=== PATIENT | female | born 1970 | race Caucasian/White ===

== ENCOUNTER → 2020-06-22 | Outpatient (CLI) | payer BC ==
--- NOTE | 2020-06-22 18:29 | Diagnostic Imaging Report ---
INDICATION: Routine screening Comparison is made prior mammogram and 10/09/2014. 2-D and 3-D bilateral screening mammography was performed with CAD. Both breasts remain heterogeneously dense, limiting sensitivity of mammography. The parenchymal pattern is stable. No mass or malignant appearing microcalcifications are seen. Axillae are unremarkable. IMPRESSION: BI-RADS Category 1 No mammographic features suspicious for malignancy are identified. ACR BI-RADS Category 1: Negative. Result letter will be mailed to the patient. Note: At least 10% of breast cancer is not imaged by mammography. Dictated by: Dictated on workstation # [id number]
== END ==
LOC: RAD 11:30
PROVIDERS: ATTEND Family Medicine
DX: Z12.31 Encounter for screening mammogram for malignant neoplasm of breast (principal)
CPT/HCPCS: 77063; 77067

== ENCOUNTER → 2021-07-02 | Outpatient (CLI) | payer BC ==
--- NOTE | 2021-07-02 12:25 | Diagnostic Imaging Report ---
Indication: Routine screening. Comparison is made with prior mammogram from 06/22/2020 and 03/12/2016. 2-D and 3-D bilateral screening mammography was performed with CAD. CAD is utilized. The current study was also evaluated with a Computer Aided Detection (CAD) system. Both breasts are heterogeneously dense, limiting the sensitivity of mammography. A benign nodule in the outer right breast is stable. No spiculated mass or malignant-appearing microcalcifications are seen. Axillae are unremarkable. IMPRESSION: BI-RADS Category 2 No mammographic features suspicious for malignancy are identified. ACR BI-RADS Category 2: Benign findings. Result letter will be mailed to the patient. Note: At least 10% of breast cancer is not imaged by mammography. Dictated by: Dictated on workstation # [id number]
== END ==
LOC: RAD 08:15
PROVIDERS: ATTEND Family Medicine
DX: Z12.31 Encounter for screening mammogram for malignant neoplasm of breast (principal)
CPT/HCPCS: 77063; 77067

== ENCOUNTER 2021-11-20 05:44 | Outpatient (CLI) | payer BC ==
[~2021-11-20] VITALS: Ht 162.6 cm; Wt 76.2 kg
[2021-11-21] MEDS ORDERED: ESCI20TA PO (10:12)
[2021-11-21] MEDS ORDERED: AMPH20TA2 PO (10:12)
[2021-11-21] MEDS ORDERED: AMLO2.5T4 PO (10:12)
== END 2021-11-21 10:18 | disposition home or self-care (01) ==
LOC: PREOP 05:44
PROVIDERS: ATTEND Internal Medicine
DX: Z01.818 Encounter for other preprocedural examination (principal)

== ENCOUNTER 2021-11-29 07:24 | Day surgery (SDC) | payer BC ==
--- NOTE | 2021-11-20 07:42 | HISTORY AND PHYSICAL ---
DATE OF SERVICE: COLONOSCOPY HISTORY AND PHYSICAL DATE OF ADMISSION: 11/29/2021 HISTORY OF PRESENT ILLNESS: The patient is a 51-year-old white female referred by Dr. Victor for screening colonoscopy. She is deemed to be of higher than average risk as her father was diagnosed with colon cancer at the age of 66. She accomplished one other colonoscopy performed by myself in 2008 that revealed no evidence for neoplasia or any other significant abnormality. She reports that she generally has felt well. She has noted no blood in the stool, bright red or melena. Denies abdominal pain or any chronic problems with diarrhea or constipation. She is not aware of anybody else has come down with colon cancer in the family. PAST MEDICAL HISTORY: She denies a history of hypertension. She has a history of Raynaud's without any other known autoimmune disease. ADD. She has a past history of depression as well. PAST SURGICAL HISTORY: Significant for total abdominal hysterectomy performed in 1999. FAMILY HISTORY: As noted in the HPI. Mother has had a history of lymphoma that caused her , also had asthma and arthritis. SOCIAL HISTORY: She is , one daughter and one stepson. No past smoking history with occasional moderate social alcohol intake. REVIEW OF SYSTEMS: CONSTITUTIONAL: Denies night sweats, chills, fever, change in weight. PULMONARY: Denies cough, wheezing or shortness of breath. GASTROINTESTINAL: As noted in the HPI. CARDIOVASCULAR: Denies orthopnea, PND, pedal edema or chest discomfort or syncope. PHYSICAL EXAMINATION: GENERAL: Reveals a pleasant white female, appears to be in no acute distress. VITAL SIGNS: Blood pressure 122/78, heart rate 70 and regular. HEENT: Unremarkable. Mallampati 1 pharyngeal configuration. No erythema noted. CHEST: Clear to auscultation. CARDIOVASCULAR: Reveals regular rate and rhythm without murmur, S3 or S4. ABDOMEN: Soft, supple without mass, organomegaly or tenderness. EXTREMITIES: Reveal no cyanosis, clubbing or edema. ASSESSMENT AND PLAN: The patient is being set up for screening colonoscopy, deemed to be of higher than average risk as her father was diagnosed with colon cancer at the age of 66. Prep instructions were given and questions were answered. Electronic medical record and Dr. Victor's notation were reviewed. I thank you for the referral of this pleasant lady. Job ID: [id number] DocumentID: [id number] Dictated Date: 11/04/2021 10:06:37 Electrical Engineering Director Date: 11/04/2021 11:02:23 Dictated By: CHRISTAL PETERSON MD
[~2021-11-29] VITALS: Ht 162.6 cm; Wt 76.2 kg
[~2021-11-29 07:24] MED LIST: AMLO2.5T4 PO; AMPH20TA2 PO; ESCI20TA PO
[2021-11-29] MEDS ORDERED: LACTATED RINGERS 1,000 ML IV STA (07:27)
[2021-11-29 07:36] VITALS: BP 126/81
--- NOTE | 2021-11-29 07:44 | Pre-Op Note & Conscious Sedat ---
Pre-Operative Progress Note Date H&P Reviewed: Nov 29, 2021 Time H&P Reviewed: 07:44 History & Physical: H&P Reviewed, Patient Examed, No changes noted Pre-Op Diagnosis: screening Conscious Sedation Pre-Proced ASA Score 2 For ASA 3 and 4: Consider anesthesia and medical clearance. Also, for patients with a history of failed moderate sedation consider anesthesia. Airway Lungs Heart ASA score ASA 1: a normal healthy patient ASA 2: a patient with a mild systemic disease (mid diabetes, controlled hypertension, obesity ASA 3: a patient with a severe systemic disease that limits activity (angina, COPD, prior Myocardial infarction) ASA 4: a patient with an incapacitating disease that is a constant threat to life (CHF, renal failure) ASA 5: a moribund patient not expected to survive 24 hrs. (ruptured aneurysm) ASA 6: a declared brain- patient whose organs are being harvested. For emergent operations, add the letter E after the classification Mallampati Classification Grade 1 Sedation Plan Analgesia, Amnesia, Plan communicated to team members, Discussed options with patient/fam, Discussed risks with patient/fam The patient is an appropriate candidate to undergo the planned procedure, sedation, and anesthesia. The patient immediately re-assessed prior to indication. CHRISTAL PETERSON MD Nov 29, 2021 07:44
[2021-11-29] MEDS ORDERED: MIDAZOLAM 2 MG/2 ML (VERSED) VIAL ONE (08:07)
[2021-11-29] MEDS ORDERED: PROPOFOL INJECTION 50 ML IV ONE (08:08)
[2021-11-29 08:45] VITALS: BP 99/62
--- NOTE | 2021-11-29 08:47 | Progress Note-Post Operative ---
Post-Procedure Note Physician (s)/Hydroelectric Plant Electrician (s) Physician CHRISTAL PETERSON MD Pre-Procedure Diagnosis Pre-Procedure Diagnosis: screening Post-Procedure Diagnosis Post-operative diagnosis: normal colonoscopy CHRISTAL PETERSON MD Nov 29, 2021 08:47
[2021-11-29 08:50] VITALS: BP 100/65
[2021-11-29 08:55] VITALS: BP 100/65
[2021-11-29 09:24] VITALS: BP 100/65
--- NOTE | 2021-11-29 11:33 | Anesthesia-General Post-Op ---
MAC Patient Condition Mental Status/LOC: Same as Preop Cardiovascular: Satisfactory Nausea/Vomiting: Absent Respiratory: Satisfactory Pain: Controlled Complications: Absent Post Op Complications Complications None Follow Up Care/Instructions Patient Instructions None needed. Anesthesiology Discharge Order Discharge Order Patient is doing well, no complaints, stable vital signs, no apparent adverse anesthesia problems. No complications reported per nursing. ALYCIA SHULTZ CRNA Nov 29, 2021 11:33
--- NOTE | 2021-11-29 12:14 | OPERATIVE REPORT ---
DATE OF SERVICE: COLONOSCOPY SUMMARY INDICATION FOR THE PROCEDURE: Screening, family history of colon cancer. DESCRIPTION OF PROCEDURE: The patient was placed in the left lateral decubitus position. Prior to undergoing colonoscopy, digital rectal evaluation was performed. Anal sphincter tone was normal and the perianal reflexes intact. No abnormalities were noted on digital inspection of anal canal or distal rectal vault. The colonoscope was then inserted into the rectum and under direct visualization advanced to cecum. The cecum was identified by identification of the ileocecal valve and appendiceal orifice. Photographic documentation was obtained. Careful inspection was made as the colonoscope was withdrawn. FINDINGS: There was no evidence for internal or external hemorrhoids. The rectum, sigmoid colon, descending colon, splenic flexure, transverse colon, hepatic flexure, ascending colon, and cecum were unremarkable with no evidence for diverticular disease or neoplasia. ASSESSMENT: Normal colonoscopy to the cecum. Considering family history, I would advocate consideration for repeat screening colonoscopy in 5 years. I thank you for the referral of this pleasant lady. Job ID: [id number] DocumentID: [id number] Dictated Date: 11/29/2021 08:46:17 Still Operator Date: 11/29/2021 12:14:09 Dictated By: CHRISTAL PETERSON MD
== END 2021-11-29 09:25 | disposition home or self-care (01) ==
LOC: ENDO 07:24
PROVIDERS: ATTEND Internal Medicine
DX: Z12.11 Encounter for screening for malignant neoplasm of colon (principal); Z80.0 Family history of malignant neoplasm of digestive organs